=== PATIENT | female | born 1970 | race Caucasian/White ===

== ENCOUNTER 2016-07-30 18:40 | Emergency (ER) | payer SELFPAY ==
--- NOTE | 2016-07-30 18:50 | NUR ---
PATIENT LEFT WITHOUT BEING SEEN BY DR. CORTÉS. NO FURTHER CARE PROVIDED FOR PATIENT.
== END 2016-07-30 18:50 | disposition left against medical advice (07) ==
LOC: MED 18:40
DX: R10.9 Unspecified abdominal pain (principal); Z53.21 Procedure and treatment not carried out due to patient leaving prior to being seen by health care provider

== ENCOUNTER 2019-11-22 20:17 | Emergency (ER) | payer OTHER ==
[~2019-11-22] VITALS: Ht 167.6 cm; Wt 90.7 kg
[2019-11-22] MEDS ORDERED: NITROGLYCERIN 2% 1 GM PKT TP ONE (20:20)
[2019-11-22] MEDS ORDERED: FUROSEMIDE 40 MG/4 ML VIAL IVP ONE ×2 (20:20→20:33)
[2019-11-22] MEDS ORDERED: ASPIRIN 81 MG TAB.CHEW PO ONE (20:20)
[2019-11-22 20:22] VITALS: BP 179/107
--- NOTE | 2019-11-22 20:30 | NUR ---
ERMD ASSESSING PT IN TRIAGE.
[2019-11-22] MEDS ORDERED: NACL 0.45% 1,000 ML IV ONE (20:35)
--- NOTE | 2019-11-22 20:35 | NUR ---
PT 49 Y/O FEMALE BIB SELF FOR C/O SLURRED SPEECH X 1 DAY. PT STATES SHE HAS HAD SLURRED SPEECH, CONFUSION, AND 6/10 MALDONADO. NEURO ASSESSMENT NORMAL. PT VSS. BED LOCKED AND IN LOWEST POSITION. PT CONTINUES ON CARDIAC MONTIOR. MEDHX: HTN, DM II ALLERGIES: NKA
--- NOTE | 2019-11-22 20:41 | NUR ---
PT TAKEN TO CT VIA [facility].
--- NOTE | 2019-11-22 20:56 | NUR ---
PT RETURNED FROM CT [facility]IA [facility]
[2019-11-22] MEDS ORDERED: NACL 0.9% 1,000 ML IV ONE (21:00)
--- NOTE | 2019-11-22 21:10 | NUR ---
PT AMBUALTED TO RESTROOM. UA COLLECTED.
--- NOTE | 2019-11-22 21:13 | NUR ---
EKG AT BEDSIDE.
--- NOTE | 2019-11-22 21:15 | NUR ---
IV PLACED IN L AC 22G. LABS DRAWN AND GIVEN TO SENIOR NET DEVELOPER ARCHITECT.
[2019-11-22 21:31] LABS: APPEARANCE,URINE CLEAR (CLEAR); BILIRUBIN,URINE NEGATIVE (NEGATIVE); BLOOD, URINE NEGATIVE (NEGATIVE); LEUKOCYTE ESTERASE ,URINE NEGATIVE (NEGATIVE); NITRITE, URINE NEGATIVE (NEGATIVE); PH,URINE 6.5 (5.0-9.0); UGLUCOSE NEGATIVE (NEGATIVE)
[2019-11-22 21:31] LABS: BASOPHILS % (AUTO) 0.5 % (0.0-2.0); EOSINOPHILS # (AUTO) 0.2 K/uL (0-0.4); EOSINOPHILS % (AUTO) 2.4 % (0.0-4.0); HEMATOCRIT 39.2 % (36-48); LYMPHOCYTES # (AUTO) 2.3 K/uL (2.5-16.5); LYMPHOCYTES % (AUTO) 34.4 % (20.5-51.1); MEAN CORPUSCULAR HEMOGLOBIN 27 pg (27-31); MEAN CORPUSCULAR HGB CONC 33 g/dL (33-37); MONOCYTES # (AUTO) 0.5 K/uL (0.8-1.0); MONOCYTES % (AUTO) 7.2 % (1.7-9.3); NEUTROPHILS # (AUTO) 3.7 K/uL (1.8-7.7); NEUTROPHILS % (AUTO) 55.5 % (42.2-75.2); PLATELET COUNT (AUTO) 286 K/uL (140-450); RED CELL DISTRIBUTION WIDTH 15.2 % (11.6-13.7); WHITE BLOOD COUNT (AUTO) 6.7 K/uL (4.8-10.8)
[2019-11-22 21:37] LABS: COLOR,URINE YELLOW (YELLOW)
[2019-11-22 21:45] LABS: CARBON DIOXIDE 29.9 mmol/L (21-32); CREATININE 0.7 mg/dL (0.6-1.3); POTASSIUM 3.9 mmol/L (3.5-5.1); TOTAL BILIRUBIN 0.3 mg/dL (0.0-1.0)
--- NOTE | 2019-11-22 22:54 | NUR ---
IV removed, catheter intact and site benign. Applied folded 4x4 gauze and tape to stop bleeding.
[2019-11-22 22:55] VITALS: BP 132/78
--- NOTE | 2019-11-22 22:55 | NUR ---
Patient discharged with v/s stable. Written and verbal after care instructions given and explained. Patient verbalized understanding. Ambulatory with steady gait. All questions addressed prior to discharge. Advised to follow up with PMD.
== END 2019-11-22 22:15 | disposition home or self-care (01) ==
LOC: MED 20:17
DX: R51 Headache (principal); R53.1 Weakness; E11.9 Type 2 diabetes mellitus without complications; I10 Essential (primary) hypertension
CPT/HCPCS: 36415; 70450; 80053; 81003; 81025; 84484; 85025; 93005; 96360; 96361; 99285; J1940; J7030

== ENCOUNTER 2022-02-19 02:45 | Emergency (ER) | payer OTHER ==
[~2022-02-19] VITALS: Ht 167.6 cm; Wt 127.0 kg
[2022-02-19 02:50] VITALS: BP 108/69
--- NOTE | 2022-02-19 03:02 | NUR ---
Patient taken to bed 12.
--- NOTE | 2022-02-19 03:07 | NUR ---
Patient BIB by [facility] from [facility]. C/O lower back pain / injury today. Per reported, patient slipped and fell in restroom inside a bar, Lower back pain, no medication given at the scence. PMHx: Patient refused to answers questions.
--- NOTE | 2022-02-19 03:12 | NUR ---
pt stated she wanted to go home. went in to clarify if she wanted to continue with treatment or go home. pt asked what should she do. informed pt if she decides to stay we can continue with treatment if not then she can leave [facility]. pt began yelling give me your name you are refusing to treat me. clarified with pt that i did not say that, pt continued to yell out give me your name you are refusing to treat me, md sanderson made aware.
--- NOTE | 2022-02-19 03:21 | NUR ---
Dr. Cameron examining patient.
[2022-02-19] MEDS ORDERED: ACETAMINOPHEN 325 MG TAB PO ONE (03:35)
[2022-02-19] MEDS ORDERED: NACL 0.9% 1,000 ML IV ONE (03:35)
[2022-02-19] MEDS ORDERED: ONDANSETRON 4 MG ODT PO ONE (03:35)
--- NOTE | 2022-02-19 04:06 | NUR ---
Provided bedside commode as request.
[2022-02-19 04:18] LABS: BASOPHILS % (AUTO) 0.5 % (0.0-2.0); EOSINOPHILS # (AUTO) 0.2 K/uL (0-0.4); EOSINOPHILS % (AUTO) 3.2 % (0.0-4.0); HEMOGLOBIN 13.7 g/dL (12.0-16.0); LYMPHOCYTES # (AUTO) 2.5 K/uL (2.5-16.5); LYMPHOCYTES % (AUTO) 49.5 % (20.5-51.1); MEAN CORPUSCULAR HEMOGLOBIN 28 pg (27-31); MEAN CORPUSCULAR HGB CONC 33 g/dL (33-37); MEAN CORPUSCULAR VOLUME 84.3 fL (80-94); MONOCYTES # (AUTO) 0.4 K/uL (0.8-1.0); MONOCYTES % (AUTO) 8.6 % (1.7-9.3); NEUTROPHILS % (AUTO) 38.2 % (42.2-75.2); PLATELET COUNT (AUTO) 310 K/uL (140-450); RED BLOOD CELL COUNT(AUTO) 4.98 MIL/uL (4.20-5.40); RED CELL DISTRIBUTION WIDTH 15.5 % (11.6-13.7); WHITE BLOOD COUNT (AUTO) 5.1 K/uL (4.8-10.8)
--- NOTE | 2022-02-19 04:28 | NUR ---
Patient taken to X-ray via gurney.
[2022-02-19 04:42] LABS: ALBUMIN 3.9 g/dL (3.4-5.0); ANION GAP 14.7 (8-16); CARBON DIOXIDE 28.2 mmol/L (21-32); CREATININE 0.6 mg/dL (0.6-1.3); POTASSIUM 3.9 mmol/L (3.5-5.1); TOTAL BILIRUBIN 0.2 mg/dL (0.0-1.0)
--- NOTE | 2022-02-19 05:12 | NUR ---
Patient returned back from X-ray.
--- NOTE | 2022-02-19 05:32 | NUR ---
Dr. Cameron re-examining patient.
[2022-02-19] MEDS ORDERED: ALPRAZolam 0.5 MG TAB PO ONE (05:35)
[2022-02-19] MEDS ORDERED: LIDOCAINE 5% 1 EA PATCH TP ONE (05:35)
[2022-02-19] MEDS ORDERED: KETOROLAC 15 MG/ML VIAL IVP ONE (05:35)
--- NOTE | 2022-02-19 07:08 | NUR ---
Patient appears to be resting comfortably in bed. Vital Signs within normal limits. Respirations even and unlabored.
--- NOTE | 2022-02-19 07:18 | NUR ---
Report given to MADHAVI Solis and endorse care of patient.
--- NOTE | 2022-02-19 07:24 | NUR ---
pt to ct w a tech, pt shows no ac distress, o2 sat 99% ra, sr up times 2
--- NOTE | 2022-02-19 08:21 | NUR ---
sleeping, no ac distress, heavy etoh smell on breath, sr on cm, o2 sat 98% ra, no pain, perrl, sr up times 2, awaits dispo
--- NOTE | 2022-02-19 11:35 | NUR ---
pt woke up, ambulated to restroom w steady gait, c/o lower back pain 07/19, no distress noted
[2022-02-19 11:55] VITALS: BP 118/76
== END 2022-02-19 11:55 | disposition home or self-care (01) ==
LOC: MED 02:45
DX: M54.50 Low back pain, unspecified (principal); F10.129 Alcohol abuse with intoxication, unspecified; I10 Essential (primary) hypertension; E11.9 Type 2 diabetes mellitus without complications; Z79.4 Long term (current) use of insulin; Z79.899 Other long term (current) drug therapy; Y90.9 Presence of alcohol in blood, level not specified
CPT/HCPCS: 36415; 70450; 72072; 72110; 72125; 72128; 72131; 80053; 85025; 96361; 96374; 99291; G0482; J1885; J7030; Q0162